=== PATIENT | male | born 1985 | race Caucasian/White ===

== ENCOUNTER 2016-11-24 10:03 | Emergency (ER) | payer SELFPAY ==
[~2016-11-24 10:03] MED LIST: OXYC-323 PO
--- NOTE | 2016-11-24 10:27 | PHYS DOC ---
Past Medical History Past Medical History: Kidney Stone Past Surgical History: Other Additional Past Surgical Histo: lithotripsy Alcohol Use: None Drug Use: Marijuana Adult General Chief Complaint Chief Complaint: FLANK PAIN HPI HPI Patient is a 31 year old male who presents with left flank pain sudden onset this morning moderate severity no nausea vomiting or fever no dysuria or frequency. Pain summer prior kidney stones the last of which required intervention but the patient does not have a urologist. Review of Systems Review of Systems Constitutional: Denies fever or chills [] Eyes: Denies change in visual acuity, redness, or eye pain [] HENT: Denies nasal congestion or sore throat [] Respiratory: Denies cough or shortness of breath [] Cardiovascular: No additional information not addressed in HPI [] GI: Denies abdominal pain, nausea, vomiting, bloody stools or diarrhea [] : Denies dysuria or hematuria [] Musculoskeletal: Denies back pain or joint pain [] Integument: Denies rash or skin lesions [] Neurologic: Denies headache, focal weakness or sensory changes [] Endocrine: Denies polyuria or polydipsia [] Current Medications Current Medications Current Medications Medications (Trade) Dose Ordered Sig/Ayla Start Time Stop Time Status Last Admin Dose Admin Hydromorphone HCl (Dilaudid) 0.5 mg 1X ONCE 11/24/16 10:30 11/24/16 10:31 DC 11/24/16 10:34 0.5 MG Ondansetron HCl (Zofran) 4 mg 1X ONCE 11/24/16 10:30 11/24/16 10:31 DC 11/24/16 10:34 4 MG Sodium Chloride 1,000 ml @ 1,000 mls/hr 1X ONCE 11/24/16 10:30 11/24/16 11:29 DC 11/24/16 10:33 1,000 MLS/HR Allergies Allergies Allergies Coded Allergies Type Severity Reaction Last Updated Verified aripiprazole Adverse Reaction Severe CAUSED SEIZURE 02/06/14 Yes Physical Exam Physical Exam Constitutional: Well developed, well nourished, no acute distress, non-toxic appearance. [] HENT: Normocephalic, atraumatic, bilateral external ears normal, oropharynx moist, no oral exudates, nose normal. [] Eyes: PERRLA, EOMI, conjunctiva normal, no discharge. [] Neck: Normal range of motion, no tenderness, supple, no stridor. [] Cardiovascular:Heart rate regular rhythm, no murmur [] Lungs & Thorax: Bilateral breath sounds clear to auscultation [] Abdomen: Bowel sounds normal, soft, no tenderness, no masses, no pulsatile masses. [] Skin: Warm, dry, no erythema, no rash. [] Back: No tenderness, questionable left CVA tenderness. [] Extremities: No tenderness, no cyanosis, no clubbing, ROM intact, no edema. [] Neurologic: Alert and oriented X 3, normal motor function, normal sensory function, no focal deficits noted. [] Psychologic: Affect normal, judgement normal, mood normal. [] Current Patient Data Vital Signs Vital Signs Date Time Temp Pulse Resp B/P (MAP) Pulse Ox O2 Delivery O2 Flow Rate FiO2 11/24/16 12:07 81 20 133/82 (99) 100 Room Air 11/24/16 10:14 97.9 97.9 Lab Values Laboratory Tests Test 11/24/16 10:10 11/24/16 10:17 Urine Collection Type Unknown Urine Color Yellow Urine Clarity Turbid Urine pH 7.0 Urine Specific [place] 1.015 Urine Protein Negative mg/dL (NEG-TRACE) Urine Glucose (UA) Negative mg/dL (NEG) Urine Ketones (Stick) Negative mg/dL (NEG) Urine Blood Negative (NEG) Urine Nitrite Negative (NEG) Urine Bilirubin Negative (NEG) Urine Urobilinogen Dipstick 1.0 mg/dL (0.2 mg/dL) Urine Leukocyte Esterase Negative (NEG) Urine RBC 0 /HPF (0-2) Urine WBC 0 /HPF (0-4) Urine Squamous Epithelial Cells Occ /LPF Urine Amorphous Sediment Present /HPF Urine Bacteria 0 /HPF (0-FEW) Sodium Level 141 mmol/L (136-145) Potassium Level 4.2 mmol/L (3.5-5.1) Chloride Level 101 mmol/L (98-107) Carbon Dioxide Level 30 mmol/L (21-32) Anion Gap 10 (6-14) Blood Urea Nitrogen 15 mg/dL (8-26) Creatinine 1.1 mg/dL (0.7-1.3) Estimated GFR (Cockcroft-Gault) 77.6 Glucose Level 98 mg/dL (70-99) Calcium Level 9.8 mg/dL (8.5-10.1) Laboratory Tests 11/24/16 10:17 EKG EKG [] Radiology/Procedures Radiology/Procedures CT scan abdomen and pelvis no ureteral stones. Per Radiology[] Course & Med Decision Making Course & Med Decision Making Pertinent Labs and Imaging studies reviewed. (See chart for details) Urinalysis was clean CT scan abdomen and pelvis no ureterolithiasis We'll treat symptomatically and have close follow-up.[] Dragon Disclaimer Dragon Disclaimer This electronic medical record was generated, in whole or in part, using a voice recognition dictation system. Departure Departure Impression: Primary Impression: Left flank pain Disposition: HOME, SELF-CARE Condition: STABLE Referrals: NO PCP (PCP) Patient Instructions: Flank Pain, [id number] JENNY SANTIAGO MD Nov 24, 2016 10:27
[2016-11-24] MEDS ORDERED: HYDROmorphone 2 MG/ML VIAL IV ONE (10:30)
[2016-11-24] MEDS ORDERED: ONDANSETRON PF 4 MG/2 ML VIAL. IV ONE (10:30)
[2016-11-24] MEDS ORDERED: IV NORMAL SALINE 1000ML BAG 1,000 ML IV ONE (10:30)
[2016-11-24 10:34] LABS: BILIRUBIN,URINE NEGATIVE (NEG); GLUCOSE,URINE NEGATIVE (NEG); NITRITE,URINE NEGATIVE (NEG); PROTEIN,URINE NEGATIVE (NEG-TRACE)
[2016-11-24 10:49] LABS: BACTERIA,URINE 0 /HPF (0-FEW); RBC,URINE 0 /HPF (0-2); SQUAMOUS EPITHELIAL CELL,UR OCC /LPF; WBC,URINE 0 /HPF (0-4)
--- NOTE | 2016-11-24 11:21 | RAD ---
CT of the abdomen and pelvis without contrast, 11/24/2016: History: Left flank pain Noncontrast scans were obtained through the urinary tract utilizing the renal stone protocol. There are single small intrarenal calculi present in both kidneys. The largest of these lies on the left and measures 6 mm. The renal collecting systems and ureters are not dilated. The nondilated distal ureters cannot be clearly traced through the pelvis, however, there is no evidence of a calculus along the expected course of either distal ureter. The partially filled urinary bladder is unremarkable. The unopacified liver shows no abnormality. The gallbladder is unremarkable. No pancreatic abnormality is seen. The spleen is of normal size. No abdominal or pelvic adenopathy is detected. The stomach is distended with fluid and retained food debris. The bowel loops are not dilated. A portion of the appendix is visualized and it shows no abnormality. No free air or free fluid is evident in the abdomen or pelvis. IMPRESSION: 1. Single small bilateral nonobstructing intrarenal calculi. 2. No obstructing urinary tract calculus is identified. PQRS Compliance Statement: One or more of the following individualized dose reduction techniques were utilized for this examination: 1. Automated exposure control 2. Adjustment of the mA and/or kV according to patient size 3. Use of iterative reconstruction technique
[2016-11-24 11:58] LABS: CALCIUM 9.8 mg/dL (8.5-10.1); CREATININE 1.1 mg/dL (0.7-1.3); GFR 77.6; POTASSIUM 4.2 mmol/L (3.5-5.1)
[2016-11-24 12:07] VITALS: BP 133/82
== END 2016-11-24 12:20 | disposition home or self-care (01) ==
LOC: ER 10:03
DX: R10.9 Unspecified abdominal pain (principal); F12.10 Cannabis abuse, uncomplicated; Z88.8 Allergy status to other drugs, medicaments and biological substances; Z87.442 Personal history of urinary calculi
CPT/HCPCS: 36415; 74176; 80048; 81001; 96361; 96374; 96375; 99285; J1170; J2405; J7030